=== PATIENT | male | born 2000 | race Caucasian/White ===

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

== ENCOUNTER 2020-11-28 07:25 | Emergency (ER) | payer OTHER ==
[~2020-11-28] VITALS: Wt 72.6 kg
[~2020-11-28 07:25] MED LIST changes: +AVPAK AZITHROM250 MG PO
[2020-11-28] MEDS ORDERED: TYLENOL325 M1 PO (08:41)
[2020-11-28] MEDS ORDERED: NAPROXEN250 MG PO (08:41)
== END 2020-11-28 09:09 | disposition home or self-care (01) ==
LOC: ED 07:25
DX: S42.291A Other displaced fracture of upper end of right humerus, initial encounter for closed fracture (principal); S70.211A Abrasion, right hip, initial encounter; Z79.899 Other long term (current) drug therapy; V89.2XXA Person injured in unspecified motor-vehicle accident, traffic, initial encounter; Y93.89 Activity, other specified; Y92.89 Other specified places as the place of occurrence of the external cause; Y99.8 Other external cause status

== ENCOUNTER 2022-02-13 12:58 | Emergency (ER) | payer OTHER ==
[~2022-02-13] VITALS: Ht 162.5 cm; Wt 70.3 kg
[~2022-02-13 12:58] MED LIST changes: +NAPROXEN250 MG PO; +TYLENOL325 M1 PO
[2022-02-13] MEDS ORDERED: TYLENOL325 M1 PO (13:41)
[2022-02-13] MEDS ORDERED: NAPROXEN250 MG PO (13:41)
== END 2022-02-13 13:59 | disposition home or self-care (01) ==
LOC: ED 12:58
DX: M25.311 Other instability, right shoulder (principal)